=== PATIENT | female | born 1995 | race Caucasian/White ===

== ENCOUNTER 2017-04-20 12:54 | Emergency (ER) | payer BC ==
[~2017-04-20 12:54] MED LIST: Iopamidol 370 76% 100 ML VIAL ONE
[2017-04-20] MEDS ORDERED: Ondansetron ODT 4 MG TAB ONE (13:14)
[2017-04-20 13:34] LABS: #Basophils 0.1 thou/uL (0.0-0.2); #Eosinphils 0.2 thou/uL (0.0-0.7); #Lymphocytes 2.8 thou/uL (1.20-3.40); #Monocytes 0.4 thou/uL (0.11-0.59); #Neutrophils 4.3 thou/uL (1.40-6.50); %Basophils 1.5 % (0.0-1.0); %Eosinophils 2.1 % (0.0-10.0); %Lymphocytes 36.2 % (21.0-51.0); %Monocytes 5.4 % (0.0-10.0); %Neutrophils 54.8 % (42.0-75.0); Hemoglobin 14.4 g/dL (12.0-16.0); Mean Corpuscular HGB CONC 34.1 g/dL (32.0-36.0); Mean Corpuscular Volume 88.1 fl (81.0-99.0); Mean Platelet Volume 7.4 fL (7.4-10.4); Platelet Count 340 thou/uL (130-400); RBC Distribution Width 10.4 % (11.5-14.5); Red Blood Cell (RBC) Count 4.79 mill/uL (4.20-5.40); White Blood Cell (WBC) Count 7.8 thou/uL (4.8-10.8)
[2017-04-20 13:50] LABS: ALT (SGPT) 22 U/L (8-55); AST (SGOT) 23 U/L (5-34); Albumin 5.2 g/dL (3.5-5.0); Alkaline Phosphatase 68 U/L (40-150); Anion Gap 19 mmol/L (10-20); BUN (Urea Nitrogen) 13 mg/dL (7.0-18.7); Bilirubin, Total 0.6 mg/dL (0.2-1.2); CRP (Inflammatory) Less than 0.50 mg/dL (= or < 0.5); Calc. Creatinine Clearance 0 mL/min (70-130); Calcium 11.4 mg/dL (7.8-10.44); Carbon Dioxide 23 mmol/L (22-29); Chloride 102 mmol/L (98-107); Estimated GFR-MDRD 86; Globulin 3.6 g/dL (2.4-3.5); Glucose 97 mg/dL (70-105); Potassium 4.3 mmol/L (3.5-5.1); Protein, Total 8.8 g/dL (6.0-8.3); Sodium 140 mmol/L (136-145)
[2017-04-20 13:51] LABS: CK (CPK) 84 U/L (29-168); Lipase 39 U/L (8-78)
[2017-04-20] MEDS ORDERED: Morphine 4 MG/ML Carpuject ONE (13:59)
[2017-04-20 14:08] LABS: BHCG - Serum Negative (NEGATIVE); Pregs Control Background? CLEAR/WHITE (CLR/WHITE); Pregs Control Bar Appear? YES (CONTROL BAR)
[2017-04-20 14:16] LABS: Bilirubin Negative (Negative); Blood, Urine Negative (Negative); Clarity Clear (Clear); Glucose, Urine (Dipstick) Negative (Negative); Leukocyte Negative (Negative); Nitrite Negative (Negative); Protein, Urine (Dipstick) Negative (Neg-Trace); Urobilinogen 0.2 mg/dL (0.2-1.0)
[2017-04-20 14:17] LABS: Pregnancy Test - Urine (BHCG) Negative (Negative)
[2017-04-20 14:18] LABS: Pregu Control Background? CLEAR/WHITE (CLR/WHITE); Pregu Control Bar Appear? YES (CONTROL BAR)
--- NOTE | 2017-04-20 16:05 | ULT ---
PELVIC ULTRASOUND 04/20/17 HISTORY: Right adnexal pelvic pain. TECHNIQUE: Multiplanar coats scale and color doppler images were obtained in a transabdominal pelvic ultrasound. A transvaginal exam was not performed. Spectral analysis of the doppler waveforms of the ovaries were performed. FINDINGS: The uterus is normal in size and appearance without focal abnormality. The endometrial stripe is norm al in appearance measuring 2 mm. No free fluid is seen in the pelvis. Both ovaries are normal in size and appearance and demonstrates normal internal flow. The dominant follicle seen in the right ovary measuring 2.0 cm in greatest dim ension. IMPRESSION: No significant pelvic abnormality. POS: [facility]
--- NOTE | 2017-04-20 16:14 | CT ---
CT ABDOMEN AND PELVIS WITH CONTRAST 04/20/17 Multiple axial tomograms obtained through the abdomen and pelvis with IV enhancement. Oral contrast w as also administered. HISTORY: Abdominal pain and right lower quadrant pain. FINDINGS: The lung bases are clear. Liver, spleen and pancreas unremarkable. The kidneys are unremarkable. No h ydronephrosis. The urinary bladder is distended. The appendix is identified and appears normal. No evidence of appendicitis. Images of the pelvis show unremarkable uterus and adnexa. No free fluid. IMPRESSION: 1. Very distended urinary bladder. 2. Otherwise no abnormality identified. POS: [facility]
[2017-04-20] MEDS ORDERED: Ibuprofen 600 MG TAB ONE (17:04)
[2017-04-21 19:46] LABS: Chlamydia by PCR Not Detected (NotDetected); GC by PCR Not Detected (NotDetected)
== END 2017-04-20 17:08 | disposition home or self-care (01) ==
LOC: SCSER 12:54
DX: R10.31 Right lower quadrant pain (principal); R11.2 Nausea with vomiting, unspecified; J45.909 Unspecified asthma, uncomplicated; Z79.899 Other long term (current) drug therapy
CPT/HCPCS: 36415; 74177; 76856; 80053; 81003; 81025; 82550; 83605; 83690; 84703; 85025; 86140; 87480; 87491; 87510; 87591; 87660; 93976; 96361; 96374; J2270; Q0162

== ENCOUNTER 2018-12-25 22:16 | Emergency (ER) | payer BC ==
[2018-12-25] MEDS ORDERED: Ketorolac Tromethamine 30 MG/ML VIAL ONE (22:50)
--- NOTE | 2018-12-25 23:00 | RAD ---
EXAM: Chest PA and lateral: HISTORY: Chest pain COMPARISON: None FINDINGS: Heart: Normal cardiac silhouette Aorta: Unremarkable Pulmonary vessels: Normal Costophrenic angles: Costophrenic angles are clear. Lungs: No consolidation or masses. Pneumothorax: No pneumothorax Osseous structures: No osseous abnormalities IMPRESSION: No acute cardiopulmonary process.
[2018-12-25 23:03] LABS: #Eosinphils 0.1 thou/uL (0.0-0.7); #Lymphocytes 3.3 thou/uL (1.20-3.40); #Monocytes 0.5 thou/uL (0.11-0.59); %Basophils 0.4 % (0.0-1.0); %Eosinophils 1.2 % (0.0-10.0); %Lymphocytes 33.1 % (21.0-51.0); %Neutrophils 60.3 % (42.0-75.0); Hemoglobin 13.1 g/dL (12.0-16.0); Mean Corpuscular HGB CONC 34.8 g/dL (32.0-36.0); Mean Corpuscular Hemoglobin 31.5 pg (27.0-31.0); Mean Corpuscular Volume 90.6 fL (78.0-98.0); Mean Platelet Volume 7.8 fL (7.4-10.4); Platelet Count 222 thou/uL (130-400); RBC Distribution Width 11.3 % (11.5-14.5); Red Blood Cell (RBC) Count 4.15 mill/uL (4.20-5.40); White Blood Cell (WBC) Count 9.9 thou/uL (4.8-10.8)
[2018-12-25 23:17] LABS: ALT (SGPT) 14 U/L (8-55); AST (SGOT) 15 U/L (5-34); Albumin 4.4 g/dL (3.5-5.0); Alkaline Phosphatase 48 U/L (40-110); Anion Gap 11 mmol/L (10-20); BUN (Urea Nitrogen) 15 mg/dL (7.0-18.7); Bilirubin, Total 0.4 mg/dL (0.2-1.2); Calc. Creatinine Clearance 0 mL/min (70-130); Calcium 9.3 mg/dL (7.8-10.44); Carbon Dioxide 28 mmol/L (22-29); Chloride 102 mmol/L (98-107); Estimated GFR-MDRD Greater than 90; Globulin 2.7 g/dL (2.4-3.5); Glucose 83 mg/dL (70-105); Potassium 3.5 mmol/L (3.5-5.1); Protein, Total 7.1 g/dL (6.0-8.3); Sodium 137 mmol/L (136-145)
== END 2018-12-26 00:40 | disposition home or self-care (01) ==
LOC: ERS 22:16
DX: R07.9 Chest pain, unspecified (principal); J45.909 Unspecified asthma, uncomplicated; Z79.899 Other long term (current) drug therapy
CPT/HCPCS: 36415; 71046; 80053; 84484; 85025; 93005; J1885